=== PATIENT | female | born 1980 | race Caucasian/White ===

== ENCOUNTER 2023-07-03 01:47 | Emergency (ER) | payer MEDICAID ==
--- NOTE | 2023-07-03 02:15 | ED Physician Documentation ---
PD HPI HEENT - Stated complaint Stated Complaint: SWOLLEN LT EAR, EAR PX - Chief complaint Chief Complaint: Heent - History obtained from History obtained from: Patient - Additional information Additional information: 42-year-old female presents for ear pain that began after getting out of work earlier today. Reports pain in the front and the back of her face.No medications taken prior to arrival. Review of Systems Constitutional: denies: Fever, Chills Ears: reports: Ear pain. denies: Loss of hearing, Drainage/discharge Nose: denies: Rhinorrhea / runny nose, Congestion, Foreign Body Throat: denies: Dental pain / toothache, Oral lesions / sores, Sore throat Neurologic: denies: Generalized weakness, Focal weakness, Numbness PD PAST MEDICAL HISTORY - Allergies Allergies/Adverse Reactions: Allergies Allergy/AdvReac Type Severity Reaction Status Date / Time moxifloxacin [From Avelox] Allergy Hives Verified 06/13/23 08:40 Penicillins Allergy Hives Verified 06/13/23 08:40 Quinolones Allergy Hives Verified 06/13/23 08:40 PD ED PE NORMAL - Vitals Vital signs reviewed: Yes - General General: Alert and oriented X 3, No acute distress - HEENT HEENT: Atraumatic, PERRL, EOMI, Other (TM normal bilaterally. L external auditory canal edematous. 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 No mastoid tenderness or protrusion of ear. Ear wick was placed in the external auditory canal and polymyxin drops administered. Patient sent home with bottle of antibiotic drops since she is allergic to other appropriate antibiotics for otitis externa. Patient counseled on ear wick use and antibiotic administration. Note for work provided. Departure - Departure Disposition: Home, Self Care Clinical Impression: Otitis externa Condition: Stable Instructions: ED Otitis Externa Prescriptions: Ciprofloxacin/Hydrocortisone [Cipro Hc Otic Suspension] 3 drops OT BID #10 ml Forms: PCP List Discharge Date/Time: 07/03/23 02:51
[2023-07-03] MEDS ORDERED: NEOMYCIN/POLYMYX/HC OTIC DROPS LEFTEAR STA (02:28)
[2023-07-03 02:57] VITALS: BP 119/77; O2SAT 99
== END 2023-07-03 02:51 | disposition home or self-care (01) ==
LOC: ED 01:47
DX: H60.92 Unspecified otitis externa, left ear (principal)
CPT/HCPCS: 99282; 99283; A9270

== ENCOUNTER 2024-08-07 18:35 | Outpatient (CLI) | payer MEDICAID | END 2024-08-07 23:59 | disposition critical access hospital (66) | LOC: EMS 18:35 | DX: K08.89 Other specified disorders of teeth and supporting structures (principal); Y04.2XXA Assault by strike against or bumped into by another person, initial encounter | CPT/HCPCS: A0425; A0429; A0999 ==

== ENCOUNTER 2024-08-07 19:06 | Emergency (ER) | payer MEDICAID ==
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
[2024-08-07] MEDS: LIDOCAINE 1%-EPI 1:100000 20 ML MDV SUBQ STA (19:22)
[2024-08-07] MEDS: KETOROLAC 15 MG/ML VIAL IVP STA (20:31)
[2024-08-07] MEDS: HYDROmorphone 1 MG/ML CARPUJECT IVP STA (20:32)
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
[2024-08-07 23:33] VITALS: BP 138/86; O2SAT 98
== END 2024-08-07 23:43 | disposition short-term general hospital (02) ==
LOC: EDUNIT# → ED 19:06
DX: S09.93XA Unspecified injury of face, initial encounter (principal); Y04.2XXA Assault by strike against or bumped into by another person, initial encounter
CPT/HCPCS: 70486; 96374; 96375; 99283; 99285; J1170